=== PATIENT | male | born 1965 | race Caucasian/White ===

== ENCOUNTER 2019-06-23 03:30 | Inpatient (IN) | payer OTHER ==
[2019-06-23] MEDS ORDERED: ALBUTEROL SO4 2.5/IPRATROPIUM 0.5 INH SOL 3 ML VIAL.NEB. NEB ONE ×2 (03:39→04:41)
--- NOTE | 2019-06-23 03:44 | PDOC ---
History of Present Illness - General Stated Complaint: NAUSEA,VOMITING Time Seen by Provider: 06/23/19 03:42 History Source: Patient Exam Limitations: No Limitations - History of Present Illness Initial Comments: 06/23/19 03:43 Source: Patient, Dr. Araujo at [facility] HPI: 53yo M smoker PMH HTN, HLD, more unacknowledged and undiagnosed conditions likely presenting by way of [facility] with acute on chronic difficulty breathing. Patient endorses passing out at work today, being taken to the ED, getting a "bunch of negative testing" and then being admitted for continued coarse wheezes despite 3x nebs, albuterol, solu medrol, magnesium - patient left the hospital when he was told his could not stay in the room with him overnight. Per Dr. Araujo at [facility] - patient was picked up for ?seizure activity, found to be breathing poorly with pinpoint pupils, improved with EMS administered Narcan, negative Utox in the ED. NCHCT, CTAP, EKG, CXR all reportedly within normal limits. Reports that the patient developed diffuse coarse wheezing, was given the above mentioned medications, and was going to be admitted when he left the department. Blood work and UA unremarkable there. Also reportedly seen 06/18 for a "viral syndrome" with URI symptoms. Patient endorses having difficulty breathing, can walk up two flights of stairs , and is SOB with exertion. Endorses audible wheezes for the past month with white/yellow sputum production. No prior diagnosed CHF or COPD, also no PCP. 3 Pillow orthopnea. Unable to identify any factors that exacerbate or relieve his respiratory symptoms - no different fumes at work, denies vaping, only uses regular cigarettes. 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 Past History - Travel Traveled outside of the country in the last 30 days: No Close contact w/someone who was outside of country & ill: No - Past Medical History Allergies/Adverse Reactions: Allergies Allergy/AdvReac Type Severity Reaction Status Date / Time No Known Allergies Allergy Verified 06/23/19 04:14 Home Medications: Ambulatory Orders Cyclobenzaprine HCl [Flexeril -] 10 mg PO TID PRN #90 tablet 09/12/14 Ibuprofen [Motrin -] 800 mg PO TID PRN #30 tablet 09/12/14 - Immunization History Immunization Up to Date: Yes - Psycho Social/Smoking Cessation Hx Smoking History: Never smoked Number of Cigarettes Smoked Daily: 10 Hx Alcohol Use: Yes (social) Substance Use Type: None Review of Systems - Review of Systems Able to Perform ROS?: Yes Is the patient limited Vincentian proficient: Yes Constitutional: No: Chills, Diaphoresis, Fever, Weakness HEENTM: Yes: See HPI, Nose Congestion Respiratory: Yes: Cough, Orthopnea, Shortness of Breath, Wheezing, Productive cough (yellow and white sputum). No: Stridor, Hemoptysis Cardiac (ROS): Yes: See HPI, Syncope. No: Chest Pain, Irregular Heart Rate, Lightheadedness, Palpitations, Chest Tightness ABD/GI: Yes: Blood Streaked Bowels (several days ago, none since), Nausea, Vomiting. No: Constipated, Diarrhea, Poor Appetite, Poor Fluid Intake, Rectal Bleeding, Tarry Stools : No: Burning, Dysuria, Frequency, Pain Musculoskeletal: No: Back Pain, Muscle Pain, Muscle Weakness Integumentary: No: Bruising, Pruritus, Rash Neurological: No: Headache, Numbness, Tingling, Weakness Psychiatric: No: Stressors, Mood Swings, Change in Appetite Endocrine: No: Symptoms Reported Hematologic/Lymphatic: No: Symptoms Reported, Anemia, Blood Clots, Easy Bleeding All Other Systems: Reviewed and Negative *Physical Exam - Physical Exam Comments: 06/23/19 05:19 Vitals reviewed, notable for tachycardia and tachypnea WDWN man, audibly wheezing, on nebulizer treatment, room smells of smoke MMM, EOMI, PERRL, NCAT, trachea midline Cardiac exam difficult to hear 2/2 diffuse coarse wheezing Diffuse coarse wheezing and crackles throughout all lung daily with some reduction in breath sounds at right lung base, normal symmetric expansion, speaking full sentences with frequent audible wheezes Soft, non-tender, non-distended WWP, no clubbing / cyanosis / edema, 2+ radial pulses Alert and oriented, no acute distress, CN grossly intact, normal gait ED Treatment Course - LABORATORY CBC & Chemistry Diagram: 06/23/19 05:15 06/23/19 05:15 Medical Decision Making - Medical Decision Making 06/23/19 05:35 53yo M presenting via [facility] with diffuse wheezes, tachycardia, tachypnea, and subacute exertional SOB, orthopnea and wheezing refractory to 3x Nebs, Albuterol, Solu-medrol, Mg given prior to arrival. History notable for recent viral? URI, and month+ of progressive SOB and wheezing. Exam notable for vitals and wheezing. DDX includes but is not limited to: COPD, Bronchitis, CHF exacerbation, Viral URI. Patient without medical care / literacy - would benefit from followup and connection with care. -CBC, CMP, BNP, Cardiac profile, flu swab -EKG, CXR PA and Lat -Additional Nebs -Rocephin 1g -Azithromycin 500mg On reassessment, patient is resting comfortably, satting well off O2, still with diffuse wheezes and tachypnea. CXR on my read: good film with adequate respiratory effort, without pnuemothorax , dense consolidation or effusion, no acute bony pathology, normal mediastinum and cardiac silhouette, coarse interstitial markings, ?nodule adjacent to L hilum, some air bronchograms anteriorly 06/23/19 06:19 -WBC 18.6 c/w steroid administration at OSH -EKbpm, NSR, normal axis, normal intervals, no ischemic morphologies -Additional nebulizer treatments ordered Dispo: Admit to Med/Surg for refractory wheezing 06/23/19 06:34 -BNP 137, mild elevation, c/w normal size heart on CXR 06/23/19 06:41 -Toponin 0.19, Cr 1.7 -EKG without changes, ASA 324 ordered, troponin will need to be trended -GERRY vs CKD unclear given lack of health care use / follow up 06/23/19 06:49 -Rapid influenza negative -MBMD sent 06/23/19 06:57 Dispo: Tele for serial troponin / monitoring with Dr. Martínez Discharge - Discharge Information Problems reviewed: Yes Clinical Impression/Diagnosis: Wheezing on both sides of chest, GERRY (acute kidney injury), Troponin I above reference range Condition: Guarded - Admission Yes - Follow up/Referral Referrals: [facility] [place] [Provider Group] - Patient Discharge Instructions - Post Discharge Activity
[2019-06-23] MEDS ORDERED: AZITHROMYCIN IVPB 500 MG in DEXTROSE 5%-WATER - 250 ML IVPB ONE (04:42)
[2019-06-23] MEDS ORDERED: CEFTRIAXONE 1 GM in DEXTROSE 5%-WATER - 100 ML IVPB ONE (04:42)
[2019-06-23 05:52] LABS: BASO % 0.1 % (0-2.0); HEMATOCRIT 45.7 % (35.4-49); HEMOGLOBIN 15.5 GM/dL (11.7-16.9); LYMPH % 2.7 % (8-40); MCH 32.8 pg (25.7-33.7); MCHC 33.9 g/dl (32.0-35.9); MEAN CELL VOLUME 96.7 fl (80-96); MEAN PLT VOLUME 8.5 fl (7.5-11.1); MONO % 3.8 % (3.8-10.2); NEUT % 93.4 % (42.8-82.8); PLATELET COUNT 233 K/MM3 (134-434); RBC 4.73 M/mm3 (4.00-5.60); RDW 13.1 % (11.9-15.9); WHITE BLOOD COUNT 18.6 K/mm3 (4.0-10.0)
--- NOTE | 2019-06-23 06:04 | PDOC ---
Attending Attestation - Resident Resident Name: YashPrakash - ED Attending Attestation I have performed the following: I have examined & evaluated the patient, The case was reviewed & discussed with the resident, I agree w/resident's findings & plan, Exceptions are as noted - HPI HPI: 06/23/19 06:01 53yoM active heavy cig smoker, HTN, HL, gastritis all untreated presents after eloping from OSH ED where he was being admitted for PNA/Wheezing. Pt endorses 1 month of progressive LEVIN/orthopnea and loud, audible wheezing on exhalation. Worse x 6 days since developing URI w/ headche, fever, body aches, congestion, cough prod of greed phlegm. 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 Pt was brought to OSH w/ story of "seizure" and "pinpoint pupils by EMS, given narcan" . At OSH, had labs, CTH, CTAP, nebs, was going to receive abx but eloped. Pt states that he and his left when they were told that she could not stay with him on the inpatient floor. no f/c, no diarrhea, emesis nbnb, no chest pain, no headache - Physicial Exam PE: 06/23/19 06:04 Vital Signs - 24 hr 06/23/19 04:06 Temperature 97.6 F Pulse Rate 111 H Respiratory 22 H Rate Blood Pressure 137/90 O2 Sat by Pulse 99 Oximetry (%) NAD, audible wheezing at bedside tachy 105, no m/r/g diffuse exp wheezing throughout w/ prolong exp phase and use of abd accessory muscles O2 sat maintains 96% on RA soft, ntnd no edmea gait, balance, speech WNL A&O x 3 - Medical Decision Making 06/23/19 06:06 53yoM w/ HTN, HL, GERD, heavy cig smoking -- all unmanaged -- presenting w/ acute and subacute decompensation in setting of likely viral URI vs. CHF/volume overload. Pt w/ audible wheezing on examination and mild resp distress. - nebs - received steroids at OSH - ctx, azith - labs w/ cardaic panel - ekg - cxr - cardaic monitor - O2 PRN - admit for treatment and further w/u of chronic medical conditions, re- establish care.
[2019-06-23] MEDS ORDERED: AZITHROMYCIN IVPB 500 MG/250 ML BAG IVPB ONE (06:13)
[2019-06-23] MEDS ORDERED: CEFTRIAXONE 1 GM/50 ML BAG ONE (06:13)
[2019-06-23] MEDS: ALBUTEROL SO4 0.083% IH SOL 2.5 MG/3 ML VIAL.NEB. NEB SCH ×3 (06:23→06:50)
[2019-06-23 06:38] LABS: ALBUMIN 4.4 g/dl (3.4-5.0); BILIRUBIN,TOTAL 0.3 mg/dL (0.2-1); BLOOD UREA NITROGEN 20.8 mg/dL (7-18); CALCIUM 8.2 mg/dL (8.5-10.1); CREATININE 1.7 mg/dL (0.55-1.3); POTASSIUM 4.4 mmol/L (3.5-5.1); TOT PROT 7.7 g/dl (6.4-8.2)
[2019-06-23] MEDS ORDERED: ASPIRIN 81 MG CHEWABLE TABLETS PO ONE (06:41)
[2019-06-23] MEDS ORDERED: ASPIRIN 81 MG CHEWABLE TABLETS ONE (06:55)
[2019-06-23] MEDS ORDERED: ALBUTEROL SO4 0.083% IH SOL 2.5 MG/3 ML VIAL.NEB. NEB ONE (06:56)
[2019-06-23] MEDS ORDERED: ALBUTEROL SO4 0.083% IH SOL 2.5 MG/3 ML VIAL.NEB. NEB PRN (07:44)
[2019-06-23] MEDS ORDERED: ONDANSETRON 4 MG/2 ML VIAL IVPUSH PRN (07:48)
--- NOTE | 2019-06-23 07:48 | HP ---
CHIEF COMPLAINT:shortness of breath, wheezing, nausea PCP: none HISTORY OF PRESENT ILLNESS: Patient is a 53 y/o male with a history of HTN and HLD who presents for cough, nausea, and shortness of breath. Patients symptoms began 10 days ago. He went to [facility] last week and was told he had a viral infection. Patient reports his symptoms continued to worsen until yesterday when he began feeling nauseous and coughing up green phlem. He has been vomiting billious fluid all night. He denies any sick contacts. He had a fever last week but none recently. Patient does not follow with a PCP and does not take any medications. Recently has been trying to cut back on smoking. Denies constipation, dysuria, fever, chills, and headache. Patient reports he also has infrequent sharp chest pain but it is not associated with anything. ER course was notable for: (1)Azithro/Ceftriaxone (2)NS (3) Recent Travel: denies PAST MEDICAL HISTORY: HTN and HLD PAST SURGICAL HISTORY: denies Social History: Smokin pack a day for long time, more recently 5-7 a day Alcohol: socially Drugs: denies Allergies No Known Allergies Allergy (Verified 06/23/19 07:02) HOME MEDICATIONS: Home Medications Medication Instructions Recorded Aspirin [ASA -] 81 mg PO DAILY 06/23/19 REVIEW OF SYSTEMS CONSTITUTIONAL: Absent: fever, chills, diaphoresis, generalized weakness, malaise, loss of appetite, weight change HEENT: Absent: rhinorrhea, nasal congestion, throat pain, throat swelling, difficulty swallowing, mouth swelling, ear pain, eye pain, visual changes CARDIOVASCULAR: Absent: chest pain, syncope, palpitations, irregular heart rate, lightheadedness , peripheral edema RESPIRATORY: cough, shortness of breath, Absent: dyspnea with exertion, orthopnea, wheezing, stridor, hemoptysis GASTROINTESTINAL: Absent: abdominal pain, abdominal distension, nausea, vomiting, diarrhea, constipation, melena, hematochezia GENITOURINARY: Absent: dysuria, frequency, urgency, hesitancy, hematuria, flank pain, genital pain MUSCULOSKELETAL: Absent: myalgia, arthralgia, joint swelling, back pain, neck pain SKIN: Absent: rash, itching, pallor HEMATOLOGIC/IMMUNOLOGIC: Absent: easy bleeding, easy bruising, lymphadenopathy, frequent infections ENDOCRINE: Absent: unexplained weight gain, unexplained weight loss, heat intolerance, cold intolerance NEUROLOGIC: Absent: headache, focal weakness or paresthesias, dizziness, unsteady gait, seizure, mental status changes, bladder or bowel incontinence PSYCHIATRIC: Absent: anxiety, depression, suicidal or homicidal ideation, hallucinations. PHYSICAL EXAMINATION Vital Signs - 24 hr 06/23/19 06/23/19 06/23/19 04:06 06:26 06:57 Temperature 97.6 F 98.2 F Pulse Rate 111 H 101 H Pulse Rate [ 118 H Apical] Respiratory 22 H 20 Rate Blood Pressure 137/90 Blood Pressure 144/80 [Left Arm] O2 Sat by Pulse 99 100 97 Oximetry (%) 06/23/19 07:15 Temperature Pulse Rate Pulse Rate [ Apical] Respiratory Rate Blood Pressure Blood Pressure [Left Arm] O2 Sat by Pulse 97 Oximetry (%) GENERAL: Awake, alert, and fully oriented, in mild distress HEAD: Normal with no signs of trauma. EYES: Pupils equal, round and reactive to light, extraocular movements intact, EARS, NOSE, THROAT: Moist mucous membranes. LUNGS: diffuse inspiratory and expiratory wheezing HEART: Regular rate and rhythm, ABDOMEN: Soft, nontender, not distended, normoactive bowel sounds, no guarding, no rebound, no masses. MUSCULOSKELETAL: Normal range of motion at all joints LOWER EXTREMITIES: 2+ pulses, warm, well-perfused. No calf tenderness. No peripheral edema. NEUROLOGICAL: Cranial nerves II-XII intact. Normal speech. Normal gait. PSYCHIATRIC: Cooperative. Good eye contact. Appropriate mood and affect. SKIN: Warm, dry, normal turgor, no rashes or lesions noted, normal capillary refill. CBC, BMP 06/23/19 05:15 06/23/19 05:15 ASSESSMENT/PLAN: Patient is a 53 y/o male with a history of HTN and HLD who presents for cough, nausea, and shortness of breath. #Sepsis 2/2 to PNA - community acquired, tachycardic with leukocytosis - continue Ceftriaxone and Azithromycin - NS @ 100 - f/u lactic acid - Chest CT w/o contrast, look for infiltrate and possible new obstructive disease - continue duonebs and albuterol - QTC 446, zofran for nausea - CXR: no evidence of infiltrate #Troponimeia - likely 2/2 to sepsis, dehydration, in setting of tachycardia - continue to trend - EKG w/o ischemic changes, new RBB - continue ASA 81 mg daily #GERRY - likely prerenal in setting of sepsis - continue NS - obtain UA - if cr does not trend down consider US #DVT ppx - heparin TID #nicotine dependence - discussed benefits of quitting - patient does not want a nicotine patch #HTN - continue to monitor in setting of sepsis - consider starting medication tomorrow if symptoms improved FEN - regular diet - NS @ 100 DIspo: monitor on tele Visit type - Emergency Visit Emergency Visit: Yes ED Registration Date: 06/23/19 Care time: The patient presented to the Emergency Department on the above date and was hospitalized for further evaluation of their emergent condition. - New Patient This patient is new to me today: Yes Date on this admission: 06/24/19 - Critical Care Critical Care patient: No ATTENDING PHYSICIAN STATEMENT I saw and evaluated the patient. I reviewed the resident's note and discussed the case with the resident. I agree with the resident's findings and plan as documented. SUBJECTIVE: OBJECTIVE: ASSESSMENT AND PLAN:
[2019-06-23] MEDS: ALBUTEROL SO4 2.5/IPRATROPIUM 0.5 INH SOL 3 ML VIAL.NEB. NEB SCH ×4 (08:18→20:45)
[2019-06-23] MEDS: SODIUM CHLORIDE 1,000 ML IV SCH ×2 (08:18→21:16)
[2019-06-23 09:23] VITALS: BMI 29.9
[2019-06-23] MEDS: HEPARIN NA (PORCINE) 5,000 UNITS/ML 1ML VIAL SQ SCH ×2 (09:53→17:47)
[2019-06-23] MEDS: ASPIRIN COATED 81 MG TABLET.EC PO SCH (09:53)
[2019-06-23] MEDS: ACETAMINOPHEN 325 MG TABLET (FP) PO PRN (10:41)
--- NOTE | 2019-06-23 11:13 | PN ---
Teaching Attending Note Name of Resident: Yuli Stack ATTENDING PHYSICIAN STATEMENT I saw and evaluated the patient. I reviewed the resident's note and discussed the case with the resident. I agree with the resident's findings and plan as documented. SUBJECTIVE: CC: cough and N/V . HPI: 53 y/o man with h/o Untreated HTN, and HL,and active nicotine dependence with no medical f/u who presented with 1 week h/o cough and 1 day h/o N/V. it started as cold sx, with runny congested nose and sore throat. he went to OSH and was sent home after being diagnosed with viral illness. claritin helpd his nasal congestin but he continued to ocugh with no sputum production . he developed N/V of non bloody emesis yesterday. he has b/l lower rib case pain especially with cough. denies abd pain. denies diarrhea. has sore throat. in ER he had Cxray which did not show infiltrates ( reviewed) , he was given IVF and Abx. Now he is on floor, he feels much better in terms of his SOB . OBJECTIVE: NAD, awake, alert, cooperative . MMM, no facial droop. Erythematous oropharynx with no exudate. no LAP inneck CV : Regular rhythm, tachy about 100, no murmurs appreciated Lungs: good air entry, no wheezes, has crackles in mid L lung. Abd: obese, soft,NT, ND , NL BS Ext: No edema or erythema on upper or lower extremities Neuro: EOMI, no facial droop, uvula at midline, strength 5/5 in upper and lower extremities proximally and distally ASSESSMENT AND PLAN: 53 y/o man with h/o Untreated HTN, and HL,and active nicotine dependence with no medical f/u who presented with 1 week h/o cough and 1 day h/o N/V. 1- Sepsis, likely due to CAP given his sx despite xray being neg, but he has crackles on exam and has cough with leukocytosis - obtain CT of chest - order lactic acid - azithro and ceftriaxone - Check legionella and pneumococal Ag - IVF - send blood culture 2- elevated troponin : liekly demand ischemia in setting of sepsis. elevation in trop is minimal. EKG with sinus rhythm, tachy, no ST or TW changes, RBBB, and QTc of 446 - repeat another trop - asa for now - order echo - if trop is increasing, will get card on board with possible AC 3- GERRY VS CKD: likely GERRY in setting of sepsis and volume depletion . - IVF for now. - if cr does not improve by tomorrow , will get US 4- H/o Untreated HTN. - BP in 140s at presentation and increasing to 160s. - will start low dose labetalol 5- DVT PX: SQ heparin
[2019-06-23] MEDS ORDERED: LABETALOL HCL 100 MG TABLET (FP) PO ONE (11:20)
[2019-06-23 11:56] LABS: ANISOCYTOSIS 1+; MACROCYTOSIS 0; PLATELET ESTIMATE NORMAL; TEAR DROP CELLS 1+; TOXIC GRANULATION 1+
[2019-06-23] MEDS: PANTOPRAZOLE 20 MG TABLET (FP) PO SCH (14:53)
[2019-06-23] MEDS ORDERED: FAMOTIDINE 20 MG TABLET PO ONE (17:56)
[2019-06-23] MEDS: LABETALOL HCL 100 MG TABLET (FP) PO SCH (21:15)
[2019-06-24] MEDS: HEPARIN NA (PORCINE) 5,000 UNITS/ML 1ML VIAL SQ SCH ×3 (05:35→19:02)
[2019-06-24 06:42] LABS: HEMATOCRIT 39.9 % (35.4-49); HEMOGLOBIN 14.2 GM/dL (11.7-16.9); MCH 34.1 pg (25.7-33.7); MCHC 35.5 g/dl (32.0-35.9); MEAN CELL VOLUME 96.1 fl (80-96); MEAN PLT VOLUME 8.4 fl (7.5-11.1); PLATELET COUNT 230 K/MM3 (134-434); RBC 4.16 M/mm3 (4.00-5.60); RDW 13.3 % (11.9-15.9); WHITE BLOOD COUNT 19.8 K/mm3 (4.0-10.0)
[2019-06-24] MEDS: ALBUTEROL SO4 2.5/IPRATROPIUM 0.5 INH SOL 3 ML VIAL.NEB. NEB SCH ×2 (07:05→11:39)
[2019-06-24 07:43] LABS: BILIRUBIN,TOTAL 0.9 mg/dL (0.2-1); BLOOD UREA NITROGEN 26.5 mg/dL (7-18); CALCIUM 8.4 mg/dL (8.5-10.1); CREATININE 1.4 mg/dL (0.55-1.3); MAGNESIUM 2.6 mg/dL (1.8-2.4); PHOSPHOROUS 2.8 mg/dL (2.5-4.9); POTASSIUM 4.2 mmol/L (3.5-5.1); TOT PROT 7.2 g/dl (6.4-8.2)
[2019-06-24] MEDS: ACETAMINOPHEN 325 MG TABLET (FP) PO PRN (08:06)
[2019-06-24] MEDS ORDERED: PT OWN MED DRAWER 7, Y5N ONE ×2 (08:41→19:03)
[2019-06-24] MEDS ORDERED: CEFTRIAXONE 1 GM in DEXTROSE 5%-WATER - 50 ML IVPB ONE ×2 (10:00→10:12)
[2019-06-24] MEDS: ASPIRIN COATED 81 MG TABLET.EC PO SCH (10:06)
[2019-06-24] MEDS: PANTOPRAZOLE 20 MG TABLET (FP) PO SCH (10:06)
[2019-06-24] MEDS: LABETALOL HCL 100 MG TABLET (FP) PO SCH ×2 (10:06→21:22)
[2019-06-24] MEDS: AZITHROMYCIN IVPB 250 MG in DEXTROSE 5%-WATER - 250 ML IVPB SCH (10:06)
[2019-06-24] MEDS: SODIUM CHLORIDE 1,000 ML IV SCH (10:08)
[2019-06-24] MEDS ORDERED: cefTRIAXone SODIUM 1 GM VIAL ONE (11:53)
[2019-06-24] MEDS ORDERED: DEXTROSE 5%-WATER - 50 ML IVPB ONE (11:53)
[2019-06-24] MEDS ORDERED: predniSONE 20 MG TABLET (UD) PO ONE (13:36)
[2019-06-24] MEDS: ACETAMINOPHEN 500 MG TABLET (FP) PO PRN (14:01)
[2019-06-24] MEDS: ACETYLCYSTEINE 20% 200MG/ML 4 ML VIAL *FOR ORAL / INH USE ONLY NEB SCH ×2 (14:07→20:40)
[2019-06-24] MEDS: ALBUTEROL SO4 0.083% IH SOL 2.5 MG/3 ML VIAL.NEB. NEB PRN ×2 (14:07→20:40)
--- NOTE | 2019-06-24 14:07 | PN ---
Progress Note (short form) - Note Progress Note: Subjective: No fever or chills. No SOLANO , still feels SOB. has secretions. over all he feels much better compared to when he initially presented . slight hemoptysis Objective: Vital Signs: Last Vital Signs Temp Pulse Resp BP Pulse Ox 97.9 F 110 H 23 H 142/95 98 06/24/19 13:49 06/24/19 13:49 06/24/19 13:49 06/24/19 13:49 06/24/19 09:00 Laboratory Results - last 24 hr 06/23/19 06/23/19 06/23/19 15:32 15:32 19:03 WBC RBC Hgb Hct MCV MCH MCHC RDW Plt Count MPV Sodium Potassium Chloride Carbon Dioxide Anion Gap BUN Creatinine Est GFR (CKD-EPI)AfAm Est GFR (CKD-EPI)NonAf Random Glucose Lactic Acid 3.1 H* 2.2 H* Calcium Phosphorus Magnesium Total Bilirubin AST ALT Alkaline Phosphatase Troponin I 0.15 H Total Protein Albumin 06/24/19 06/24/19 06/24/19 05:45 06:13 06:13 WBC 19.8 H RBC 4.16 Hgb 14.2 Hct 39.9 MCV 96.1 H MCH 34.1 H MCHC 35.5 RDW 13.3 Plt Count 230 MPV 8.4 Sodium 137 Potassium 4.2 Chloride 109 H Carbon Dioxide 20 L Anion Gap 8 BUN 26.5 H Creatinine 1.4 H Est GFR (CKD-EPI)AfAm 65.09 Est GFR (CKD-EPI)NonAf 56.16 Random Glucose 109 H Lactic Acid 1.4 Calcium 8.4 L Phosphorus 2.8 Magnesium 2.6 H Total Bilirubin 0.9 AST 80 H ALT 53 Alkaline Phosphatase 74 Troponin I Total Protein 7.2 Albumin 4.0 Physical Exam: NAD, awake, alert, cooperative . MMM CV : Regular rhythm, tachy Lungs: good air entry, +wheezes, has crackles in mid L lung. Ext: No edema or erythema on upper or lower extremities ASSESSMENT AND PLAN: 53 y/o man with h/o Untreated HTN, and HL,and active nicotine dependence with no medical f/u who presented with 1 week h/o cough and 1 day h/o N/V. 1- Sepsis, due to b/l CAP . slightly improved. has wheezing today. Nebs help . leukocytosis improved - cotn ceftriaxone and azithro day 2 - legionella /pneumococcal Ag neg -blood cx neg to date - IVF - add steroids. - cont nebs - add mucomyst Nebs - reepeat CT of chest in 6-8 weeks . he was made aware 2- elevated troponin : likely demand ischemia in setting of sepsis. elevation in trop is minimal and trended down . - asa for now - echo pendign 3- GERRY VS CKD: likely GERRY in setting of sepsis and volume depletion. Cr improved - IVF for now. 4- H/o Untreated HTN. - cont labetalol 5- DVT PX: SQ heparin Visit type - Emergency Visit Emergency Visit: Yes ED Registration Date: 06/23/19 Care time: The patient presented to the Emergency Department on the above date and was hospitalized for further evaluation of their emergent condition. - New Patient This patient is new to me today: No - Critical Care Critical Care patient: No
[2019-06-24 14:29] LABS: EPI CELLS 0.2 /HPF (0-5/HPF); HYALINE CASTS 0 /lpf (0-8); PH,URINE 5.5 (5.0-8.0); URINE APPEARANCE CLEAR; URINE BACTERIA 1.9 /hpf (NEGATIVE); URINE BILIRUBIN NEGATIVE (NEGATIVE); URINE COLOR YELLOW; URINE GLUCOSE (UA) NEGATIVE (NEGATIVE); URINE KETONE NEGATIVE (NEGATIVE); URINE LEUK ESTERASE NEGATIVE (NEGATIVE); URINE NITRITE NEGATIVE (NEGATIVE); URINE PROTEIN NEGATIVE (NEGATIVE); URINE RBC 4 /hpf (0-4); URINE UROBILINOGEN 0.2 mg/dL (0.2-1.0); URINE WBC 0 /hpf (0-5)
[2019-06-24 15:09] LABS: MAGNESIUM 2.4 mg/dL (1.8-2.4); PHOSPHOROUS 2.3 mg/dL (2.5-4.9)
[2019-06-25] MEDS: ACETAMINOPHEN 500 MG TABLET (FP) PO PRN ×3 (00:56→18:33)
[2019-06-25] MEDS: HEPARIN NA (PORCINE) 5,000 UNITS/ML 1ML VIAL SQ SCH ×3 (05:11→17:44)
[2019-06-25 06:47] LABS: BASO % 0.4 % (0-2.0); EOS % 0.1 % (0-4.5); HEMATOCRIT 40.8 % (35.4-49); LYMPH % 11.8 % (8-40); MCHC 34.4 g/dl (32.0-35.9); MEAN CELL VOLUME 95.9 fl (80-96); MEAN PLT VOLUME 8.5 fl (7.5-11.1); MONO % 5.6 % (3.8-10.2); NEUT % 82.1 % (42.8-82.8); PLATELET COUNT 228 K/MM3 (134-434); RBC 4.25 M/mm3 (4.00-5.60); WHITE BLOOD COUNT 14.1 K/mm3 (4.0-10.0)
[2019-06-25 07:13] LABS: BLOOD UREA NITROGEN 20.2 mg/dL (7-18); CALCIUM 8.5 mg/dL (8.5-10.1); CREATININE 1.2 mg/dL (0.55-1.3); POTASSIUM 4.5 mmol/L (3.5-5.1)
[2019-06-25] MEDS: ACETYLCYSTEINE 20% 200MG/ML 4 ML VIAL *FOR ORAL / INH USE ONLY NEB SCH ×2 (08:38→21:15)
[2019-06-25] MEDS: ALBUTEROL SO4 0.083% IH SOL 2.5 MG/3 ML VIAL.NEB. NEB PRN ×3 (08:40→21:15)
[2019-06-25] MEDS ORDERED: DEXTROSE 5%-WATER - 50 ML IVPB ONE (09:09)
[2019-06-25] MEDS ORDERED: cefTRIAXone SODIUM 1 GM VIAL ONE (09:09)
[2019-06-25] MEDS: ASPIRIN COATED 81 MG TABLET.EC PO SCH (10:04)
[2019-06-25] MEDS: PANTOPRAZOLE 20 MG TABLET (FP) PO SCH (10:05)
[2019-06-25] MEDS: predniSONE 20 MG TABLET (UD) PO SCH (10:05)
[2019-06-25] MEDS: LABETALOL HCL 100 MG TABLET (FP) PO SCH ×2 (10:05→22:56)
[2019-06-25] MEDS: CEFTRIAXONE 1 GM in DEXTROSE 5%-WATER - 50 ML IVPB SCH (10:07)
[2019-06-25] MEDS: AZITHROMYCIN IVPB 250 MG in DEXTROSE 5%-WATER - 250 ML IVPB SCH (10:08)
--- NOTE | 2019-06-25 10:55 | EKG ---
Test Reason : Blood Pressure : / mmHG Vent. Rate : 100 BPM Atrial Rate : 100 BPM P-R Int : 146 ms QRS Dur : 090 ms QT Int : 346 ms P-R-T Axes : 053 040 047 degrees QTc Int : 446 ms NORMAL SINUS RHYTHM INCOMPLETE RIGHT BUNDLE BRANCH BLOCK NO PREVIOUS ECGS AVAILABLE Confirmed by OSCAR AYERS MD ([id number]) on 06/25/2019 10:55:08 AM Referred By: Confirmed By:OSCAR AYERS MD
--- NOTE | 2019-06-25 11:27 | ECHO ---
Name: JOSSIE WASHINGTON Exam:Adult Echocardiogram Study Date: 06/25/2019 09:28 AM Age: 53 yrs Height: 64 in Weight: 174 lb BSA: 1.8 m2 MMode/2D Measurements & Calculations IVSd: 0.71 cm ACS: 2.0 cm LVIDd: 3.6 cm LVIDs: 2.3 cm LVPWd: 1.2 cm EDV(Teich): 55.3 ml LVOT diam: 1.9 cm ESV(Teich): 19.1 ml RV S Sagar: 16.8 cm/sec Doppler Measurements & Calculations MV E max sagar: 67.9 cm/sec MV A max sagar: 75.9 cm/sec MV dec slope: 547.3 cm/sec2 MV E/A: 0.89 Ao V2 max: 153.4 cm/sec LV V1 max P.8 mmHg Ao max P.4 mmHg LV V1 mean P.2 mmHg Ao V2 mean: 114.8 cm/sec LV V1 max: 97.9 cm/sec Ao mean P.9 mmHg LV V1 mean: 69.6 cm/sec Ao V2 VTI: 26.3 cm LV V1 VTI: 16.2 cm JUDY(I,D): 1.7 cm2 JUDY(V,D): 1.8 cm2 SV(LVOT): 44.8 ml Med Peak E' Sagar: 8.7 cm/sec Med E/e': 7.8 Lat Peak E' Sagar: 8.5 cm/sec Lat E/e': 8.0 Procedure A complete two-dimensional transthoracic echocardiogram was performed (2D, M-mode, Doppler and color flow Doppler). Technically limited study. Left Ventricle The left ventricle is normal in size. Left ventricular systolic function is normal. Ejection Fraction = 60- 65%. No regional wall motion abnormalities noted. Right Ventricle The right ventricle is normal size. The right ventricular systolic function is normal. RV systolic TD I is 17 cm/s. Atria The left atrial size is normal. Right atrial size is normal. Mitral Valve The mitral valve is normal in structure and function. There is trace mitral regurgitation. Tricuspid Valve The tricuspid valve is normal in structure and function. No tricuspid regurgitation. Aortic Valve The aortic valve is normal in structure and function. No aortic regurgitation is present. Pulmonic Valve The pulmonic valve is not well visualized. Trace pulmonic valvular regurgitation. Great Vessels The aortic root is normal size. Pericardium/Pleura There is no pericardial effusion. Interpretation Summary Technically limited study The left ventricle is normal in size. Left ventricular systolic function is normal. No regional wall motion abnormalities noted. Ejection Fraction = 60-65%. The right ventricular systolic function is normal. The left atrial size is normal. Right atrial size is normal. There is trace mitral regurgitation. Trace pulmonic valvular regurgitation. There is no pericardial effusion. Previous study is not available for comparison Manuel Grayson MD 06/25/2019 11:26 AM
[2019-06-25] MEDS ORDERED: NAPH,MB-DB/K PH,MBDB POWDER PACKET PO ONE (11:39)
--- NOTE | 2019-06-25 11:45 | PN ---
Teaching Attending Note Name of Resident: Yuli Stack ATTENDING PHYSICIAN STATEMENT I saw and evaluated the patient. I reviewed the resident's note and discussed the case with the resident. I agree with the resident's findings and plan as documented. SUBJECTIVE: He feels much better today. has mild SOLANO. SOB has much improved. has episodes of hemoptysis and epistaxis yesterday. No CP. No abd pain, no diarrhea OBJECTIVE: NAD, awake, alert, cooperative . MMM CV : RRR Lungs: good air entry,minimal wheezes, has crackles in mid L lung. Ext: No edema or erythema on upper or lower extremities ASSESSMENT AND PLAN: 53 y/o man with h/o Untreated HTN, and HL,and active nicotine dependence with no medical f/u who presented with 1 week h/o cough and 1 day h/o N/V. 1- Sepsis, due to b/l CAP . symptomatically much improved and leukocytosis has improved. No fever . hemoptysis is likely due to the PNA. minimal - cont ceftriaxone and azithro day 3 - blood cx neg to date. sputum cx neg - IVF . can dc tomorrow - cotn steroids. Day 2 of 40 mg - cont nebs - cont mucomyst Nebs - repeat CT of chest in 6-8 weeks . he was made aware 2- Elevated troponin: likely demand ischemia in setting of sepsis. elevation in trop is minimal and trended down . - asa for now - echo pending 3- GERRY VS CKD: likely GERRY in setting of sepsis and volume depletion. Cr normalized - IVF for now. 4- H/o Untreated HTN. - cont labetalol 5- DVT PX: SQ heparin ( patient refusing ) tele reviewed. No events. Dc tele and transfer to Med Surg
--- NOTE | 2019-06-25 12:13 | PN ---
Physical Exam: SUBJECTIVE: Patient seen and examined in the morning. No acute events overnight. Patient had no complaints of chest pain, shortness of breath, abdominal pain, bleeding, headache, dysuria, or hematuria overnight. OBJECTIVE: Vital Signs Period Temp Pulse Resp BP Sys/Mayes Pulse Ox Last 24 Hr 97.9 F-98.7 F 88-110 20-23 139-165/85-100 95-98 GENERAL: The patient is awake, alert, and fully oriented, in no acute distress. HEAD: Normal with no signs of trauma. NECK: Trachea midline, full range of motion, supple. LUNGS: Breath sounds equal, clear to auscultation bilaterally, no wheezes, no crackles, no accessory muscle use. HEART: Regular rate and rhythm, S1, S2 without murmur, rub or gallop. ABDOMEN: Soft, nontender, nondistended, normoactive bowel sounds, no guarding EXTREMITIES: 2+ pulses, warm, well-perfused, no edema. NEUROLOGICAL: Cranial nerves II through XII grossly intact. Normal speech. SKIN: Warm, dry, normal turgor, no rashes or lesions noted Laboratory Results - last 24 hr 06/24/19 06/24/19 06/25/19 13:55 14:31 05:32 WBC 14.1 H RBC 4.25 Hgb 14.0 Hct 40.8 MCV 95.9 MCH 33.0 MCHC 34.4 RDW 13.0 Plt Count 228 MPV 8.5 Absolute Neuts (auto) 11.6 H Neutrophils % 82.1 Lymphocytes % 11.8 D Monocytes % 5.6 Eosinophils % 0.1 D Basophils % 0.4 D Nucleated RBC % 0 Sodium Potassium Chloride Carbon Dioxide Anion Gap BUN Creatinine Est GFR (CKD-EPI)AfAm Est GFR (CKD-EPI)NonAf Random Glucose Calcium Phosphorus 2.3 L Magnesium 2.4 Urine Color Yellow Urine Appearance Clear Urine pH 5.5 Ur Specific Marcy 1.013 Urine Protein Negative Urine Glucose (UA) Negative Urine Ketones Negative Urine Blood 2+ H Urine Nitrite Negative Urine Bilirubin Negative Urine Urobilinogen 0.2 Ur Leukocyte Esterase Negative Urine WBC (Auto) 0 Urine RBC (Auto) 4 Urine Casts (Auto) 0 U Epithel Cells (Auto) 0.2 Urine Bacteria (Auto) 1.9 06/25/19 05:32 WBC RBC Hgb Hct MCV MCH MCHC RDW Plt Count MPV Absolute Neuts (auto) Neutrophils % Lymphocytes % Monocytes % Eosinophils % Basophils % Nucleated RBC % Sodium 138 Potassium 4.5 Chloride 106 Carbon Dioxide 25 Anion Gap 6 L BUN 20.2 H Creatinine 1.2 Est GFR (CKD-EPI)AfAm 78.43 Est GFR (CKD-EPI)NonAf 67.67 Random Glucose 97 Calcium 8.5 Phosphorus Magnesium Urine Color Urine Appearance Urine pH Ur Specific Marcy Urine Protein Urine Glucose (UA) Urine Ketones Urine Blood Urine Nitrite Urine Bilirubin Urine Urobilinogen Ur Leukocyte Esterase Urine WBC (Auto) Urine RBC (Auto) Urine Casts (Auto) U Epithel Cells (Auto) Urine Bacteria (Auto) Active Medications Generic Name Dose Route Start Last Admin Trade Name Freq PRN Reason Stop Dose Admin Acetaminophen 1,000 mg 06/24/19 13:37 06/25/19 10:12 Tylenol - PO 1,000 mg Q6H PRN Administration PAIN LEVEL 6-10 Acetylcysteine 600 mg 06/24/19 13:45 06/25/19 08:38 Mucomyst 20 Oral / Inh Use Only* NEB 600 mg RBID IRAIS Administration Albuterol Sulfate 1 amp 06/24/19 13:37 06/25/19 11:39 Ventolin 0.083% Nebulizer Soln - NEB 1 amp Q6H PRN Administration WHEEZING Aspirin 81 mg 06/23/19 10:00 06/25/19 10:04 Ecotrin - PO 81 mg DAILY IRAIS Administration Heparin Sodium (Porcine) 5,000 unit 06/23/19 10:00 06/25/19 10:34 Heparin - SQ Not Given Q8H-IV IRAIS Azithromycin 250 mg/ Dextrose 250 mls @ 250 mls/hr 06/24/19 10:00 06/25/19 10 :08 IVPB 250 mls/hr DAILY IRAIS Administration Sodium Chloride 1,000 mls @ 100 mls/hr 06/24/19 07:00 06/24/19 10:08 Normal Saline - IV 100 mls/hr ASDIR IRAIS Administration Ceftriaxone Sodium 1 gm/ 50 mls @ 100 mls/hr 06/25/19 10:00 06/25/19 10:07 Dextrose IVPB 100 mls/hr DAILY IRAIS Administration Labetalol HCl 100 mg 06/23/19 22:00 06/25/19 10:05 Normodyne - PO 100 mg BID IRAIS Administration Pantoprazole Sodium 20 mg 06/23/19 14:30 06/25/19 10:05 Protonix - PO 20 mg DAILY IRAIS Administration Prednisone 40 mg 06/25/19 10:00 06/25/19 10:05 Deltasone - PO 40 mg DAILY IRAIS Administration ASSESSMENT/PLAN: 53M with HTN, HLD, who presented with cough, nausea, and shortness of breath secondary to pneumonia. 1)Sepsis secondary to pneumonia -Was tachycardic and had leukocytosis of 18.3 on admission. -Chest CT showed right middle lobe pneumonia. Repeat in 6-8 weeks. -WBC is 14.1 today. -Continue Ceftriaxone 1 gram IV daily -Continue azithromycin 250 mg IV daily -Continue Albuterol PRN -Continue Prednisone 40 mg PO daily -Continue Acetylcysteine BID 2)New episodes of epistaxis and hemoptysis -Likely secondary to pneumonia -TB unlikely -D/C heparin -Coagulopathy studies as outpatient 3)Elevated Troponin: -Likely secondary to ischemia in setting of sepsis -Continue ASA 81 mg PO daily 4)GERRY -Creatinine is 1.2 today. Improving. -Continue NS @100 ml/hr 5)HTN -Continue labetolol 100 mg PO BID F: Continue NS @ 100 ml/hr E: Monitor Electrolytes N: Sodium restricted diet DVT Prophylaxis: SCD Dispo: Transferred to medicine floors Visit type - Emergency Visit Emergency Visit: Yes ED Registration Date: 06/23/19 Care time: The patient presented to the Emergency Department on the above date and was hospitalized for further evaluation of their emergent condition. - New Patient This patient is new to me today: No - Critical Care Critical Care patient: No ATTENDING PHYSICIAN STATEMENT I saw and evaluated the patient. I reviewed the resident's note and discussed the case with the resident. I agree with the resident's findings and plan as documented. SUBJECTIVE: OBJECTIVE: ASSESSMENT AND PLAN:
[2019-06-25] MEDS: SODIUM CHLORIDE 1,000 ML IV SCH (13:31)
[2019-06-26] MEDS: ALBUTEROL SO4 0.083% IH SOL 2.5 MG/3 ML VIAL.NEB. NEB PRN ×5 (01:15→19:37)
[2019-06-26] MEDS: HEPARIN NA (PORCINE) 5,000 UNITS/ML 1ML VIAL SQ SCH ×4 (01:30→21:09)
[2019-06-26] MEDS: SODIUM CHLORIDE 1,000 ML IV SCH ×2 (04:44→14:36)
[2019-06-26] MEDS: ACETAMINOPHEN 500 MG TABLET (FP) PO PRN (06:13)
[2019-06-26 08:18] LABS: BASO % 0.4 % (0-2.0); EOS % 0.5 % (0-4.5); HEMATOCRIT 43.3 % (35.4-49); HEMOGLOBIN 14.7 GM/dL (11.7-16.9); LYMPH % 17.8 % (8-40); MCH 32.3 pg (25.7-33.7); MCHC 33.9 g/dl (32.0-35.9); MEAN CELL VOLUME 95.3 fl (80-96); MEAN PLT VOLUME 8.2 fl (7.5-11.1); MONO % 6.8 % (3.8-10.2); NEUT % 74.5 % (42.8-82.8); PLATELET COUNT 241 K/MM3 (134-434); RBC 4.54 M/mm3 (4.00-5.60); RDW 13.2 % (11.9-15.9); WHITE BLOOD COUNT 13.3 K/mm3 (4.0-10.0)
[2019-06-26] MEDS ORDERED: DEXTROSE 5%-WATER - 50 ML IVPB ONE (08:31)
[2019-06-26] MEDS ORDERED: cefTRIAXone SODIUM 1 GM VIAL ONE (08:31)
[2019-06-26 08:39] LABS: BLOOD UREA NITROGEN 16.9 mg/dL (7-18); CALCIUM 8.4 mg/dL (8.5-10.1); CREATININE 1.2 mg/dL (0.55-1.3); POTASSIUM 3.8 mmol/L (3.5-5.1)
[2019-06-26] MEDS: ACETYLCYSTEINE 20% 200MG/ML 4 ML VIAL *FOR ORAL / INH USE ONLY NEB SCH ×2 (09:02→09:05)
[2019-06-26] MEDS: ASPIRIN COATED 81 MG TABLET.EC PO SCH (09:58)
[2019-06-26] MEDS: CEFTRIAXONE 1 GM in DEXTROSE 5%-WATER - 50 ML IVPB SCH (09:58)
[2019-06-26] MEDS: PANTOPRAZOLE 20 MG TABLET (FP) PO SCH (09:58)
[2019-06-26] MEDS: predniSONE 20 MG TABLET (UD) PO SCH (09:58)
[2019-06-26] MEDS: LABETALOL HCL 100 MG TABLET (FP) PO SCH (09:58)
[2019-06-26] MEDS ORDERED: SODIUM CHLORIDE 1,000 ML IV SCH (12:39)
[2019-06-26] MEDS ORDERED: ACETAMINOPHEN 500 MG TABLET (FP) PO PRN (12:39)
[2019-06-26] MEDS: AZITHROMYCIN IVPB 250 MG in DEXTROSE 5%-WATER - 250 ML IVPB SCH (14:36)
--- NOTE | 2019-06-26 14:54 | PN ---
Physical Exam: SUBJECTIVE: Patient seen and examined in the morning. No acute events overnight. No complaints of shortness of breath, nausea, vomiting, abdominal pain, chest pain, fevers, or chills. OBJECTIVE: Vital Signs Period Temp Pulse Resp BP Sys/Mayes Pulse Ox Last 24 Hr 97.7 F-98.9 F 95-106 20-22 139-159/87-107 95-97 GENERAL: The patient is awake, alert, and fully oriented, in no acute distress. HEAD: Normal with no signs of trauma. NECK: Trachea midline, full range of motion, supple. LUNGS: Left lung is clear to auscultation bilaterally. Right lung has expiratory wheezing on in the upper and middle lobes. HEART: Regular rate and rhythm, S1, S2 without murmur, rub or gallop. ABDOMEN: Soft, nontender, nondistended, normoactive bowel sounds, no guarding EXTREMITIES: 2+ pulses, warm, well-perfused, no edema. NEUROLOGICAL: Cranial nerves II through XII grossly intact. Normal speech. SKIN: Warm, dry, normal turgor, no rashes or lesions noted Laboratory Results - last 24 hr 06/26/19 06/26/19 07:58 07:58 WBC 13.3 H RBC 4.54 Hgb 14.7 Hct 43.3 MCV 95.3 MCH 32.3 MCHC 33.9 RDW 13.2 Plt Count 241 MPV 8.2 Absolute Neuts (auto) 9.9 H Neutrophils % 74.5 Lymphocytes % 17.8 D Monocytes % 6.8 Eosinophils % 0.5 D Basophils % 0.4 Nucleated RBC % 0 Sodium 139 Potassium 3.8 Chloride 107 Carbon Dioxide 25 Anion Gap 6 L BUN 16.9 Creatinine 1.2 Est GFR (CKD-EPI)AfAm 78.43 Est GFR (CKD-EPI)NonAf 67.67 Random Glucose 109 H Calcium 8.4 L Active Medications Generic Name Dose Route Start Last Admin Trade Name Freq PRN Reason Stop Dose Admin Acetaminophen 1,000 mg 06/26/19 12:39 Tylenol - PO Q6H PRN PAIN LEVEL 6-10 Acetylcysteine 600 mg 06/26/19 20:00 Mucomyst 20 Oral / Inh Use Only* NEB RBID IRAIS Albuterol Sulfate 1 amp 06/26/19 12:39 Ventolin 0.083% Nebulizer Soln - NEB Q6H PRN WHEEZING Aspirin 81 mg 06/27/19 10:00 Ecotrin - PO DAILY IRAIS Heparin Sodium (Porcine) 5,000 unit 06/26/19 14:00 06/26/19 14:47 Heparin - SQ Not Given TID IRAIS Azithromycin 250 mg/ Dextrose 250 mls @ 250 mls/hr 06/27/19 10:00 IVPB DAILY IRAIS Ceftriaxone Sodium 1 gm/ 50 mls @ 100 mls/hr 06/27/19 10:00 Dextrose IVPB DAILY IRAIS Sodium Chloride 1,000 mls @ 100 mls/hr 06/26/19 12:39 06/26/19 14:47 Normal Saline - IV 100 mls/hr ASDIR IRAIS Administration Labetalol HCl 100 mg 06/26/19 22:00 Normodyne - PO BID IRAIS Pantoprazole Sodium 20 mg 06/27/19 10:00 Protonix - PO DAILY IRAIS Prednisone 40 mg 06/27/19 10:00 Deltasone - PO DAILY IRAIS ASSESSMENT/PLAN: 53M with HTN, HLD, who presented with cough, nausea, and shortness of breath secondary to pneumonia. 1)Sepsis secondary to pneumonia -Was tachycardic and had leukocytosis of 18.3 on admission. -Chest CT showed bilateral lobe pneumonia. Repeat in 6-8 weeks. -WBC is 13.3 today. -Continue Ceftriaxone 1 gram IV daily -Continue azithromycin 250 mg IV daily -Continue Albuterol PRN -Continue Prednisone 40 mg PO daily -Continue Acetylcysteine BID 2)New episodes of epistaxis and hemoptysis -Likely secondary to pneumonia -TB unlikely -D/C heparin -Coagulopathy studies as outpatient 3)Elevated Troponin: -Likely secondary to ischemia in setting of sepsis -Continue ASA 81 mg PO daily 4)GERRY -Creatinine is 1.2 today. Improving. -Continue NS @100 ml/hr 5)HTN -Continue labetolol 100 mg PO BID F: Continue NS @ 100 ml/hr E: Monitor Electrolytes N: Sodium restricted diet DVT Prophylaxis: Heparin 5000 unit SQ TID Dispo: Admitted to medicine floors Visit type - Emergency Visit Emergency Visit: Yes ED Registration Date: 06/23/19 Care time: The patient presented to the Emergency Department on the above date and was hospitalized for further evaluation of their emergent condition. - New Patient This patient is new to me today: No - Critical Care Critical Care patient: No ATTENDING PHYSICIAN STATEMENT I saw and evaluated the patient. I reviewed the resident's note and discussed the case with the resident. I agree with the resident's findings and plan as documented. SUBJECTIVE: OBJECTIVE: ASSESSMENT AND PLAN:
--- NOTE | 2019-06-26 18:17 | PN ---
Teaching Attending Note Name of Resident: Luca Santos ATTENDING PHYSICIAN STATEMENT I saw and evaluated the patient. I reviewed the resident's note and discussed the case with the resident. I agree with the resident's findings and plan as documented. SUBJECTIVE: No fever or chills. No SOLANO . SOB is better compared to yesterday . does not want the mucomyst . No hemoptysis or nose bleed today OBJECTIVE: NAD, awake, alert, MMM CV: RRR Lungs: good air entry,minimal wheezes,No crackles heard Ext: No edema or erythema on upper or lower extremities ASSESSMENT AND PLAN: 53 y/o man with h/o Untreated HTN, and HL,and active nicotine dependence with no medical f/u who presented with 1 week h/o cough and 1 day h/o N/V. 1- Sepsis, due to b/l CAP . much improved , still has leukocytosis , but sx are better and no more fever - cont ceftriaxone and azithro day 4 - blood cx neg x 72 hr . sputum cx neg - DC IVF - dc mucomyst as patient refuses - cont steroids. Day 3 of 40 mg, probably can start tapering after tomorrow's dose - cont nebs - cxray and CBC in am 2- Elevated Troponin: likely demand ischemia in setting of sepsis. elevation in trop is minimal and trended down . - ASA for now - echo reviewed. - f/u with card as out pt for stress test 3- GERRY : resolved. dc IVF 4- H/o Untreated HTN. - change labetalol to norvasc in setting of broncospasm and possible undiagnosed COPD. 5- DVT PX: SQ heparin ( patient refusing ) possible dc tomorrow
[2019-06-26] MEDS ORDERED: ACETYLCYSTEINE 20% 200MG/ML 4 ML VIAL *FOR ORAL / INH USE ONLY NEB SCH (20:00)
[2019-06-26] MEDS ORDERED: LABETALOL HCL 100 MG TABLET (FP) PO SCH (22:00)
[2019-06-27] MEDS: HEPARIN NA (PORCINE) 5,000 UNITS/ML 1ML VIAL SQ SCH ×2 (05:41→15:20)
[2019-06-27 08:12] LABS: BASO % 0.4 % (0-2.0); HEMATOCRIT 43.8 % (35.4-49); HEMOGLOBIN 14.9 GM/dL (11.7-16.9); LYMPH % 23.7 % (8-40); MCH 32.9 pg (25.7-33.7); MCHC 34.1 g/dl (32.0-35.9); MEAN CELL VOLUME 96.5 fl (80-96); MEAN PLT VOLUME 8.1 fl (7.5-11.1); MONO % 7.3 % (3.8-10.2); NEUT % 67.6 % (42.8-82.8); PLATELET COUNT 277 K/MM3 (134-434); RBC 4.54 M/mm3 (4.00-5.60); RDW 13.1 % (11.9-15.9); WHITE BLOOD COUNT 12.7 K/mm3 (4.0-10.0)
[2019-06-27] MEDS: ALBUTEROL SO4 0.083% IH SOL 2.5 MG/3 ML VIAL.NEB. NEB PRN (08:28)
[2019-06-27 08:40] LABS: BLOOD UREA NITROGEN 19.8 mg/dL (7-18); CALCIUM 8.8 mg/dL (8.5-10.1); CREATININE 1.3 mg/dL (0.55-1.3); POTASSIUM 4.1 mmol/L (3.5-5.1)
[2019-06-27] MEDS ORDERED: cefTRIAXone SODIUM 1 GM VIAL ONE (08:55)
[2019-06-27] MEDS ORDERED: DEXTROSE 5%-WATER - 50 ML IVPB ONE (08:56)
[2019-06-27] MEDS ORDERED: PT OWN MED DRAWER 7, Y5N ONE (08:58)
--- NOTE | 2019-06-27 09:20 | PN ---
Teaching Attending Note Name of Resident: Luca Santos ATTENDING PHYSICIAN STATEMENT I saw and evaluated the patient. I reviewed the resident's note and discussed the case with the resident. I agree with the resident's findings and plan as documented. SUBJECTIVE: Patient is improving symptomatically , No fever or chills. No SOLANO . SOB is morning but improving as per patient since got the nebuliizer treatment. As per patient quit smoking 2 weeks ago and will not smoke ever and stated that he had a childhood asthma. Vital Signs Temperature 98.2 F 06/27/19 08:18 Pulse Rate 89 06/27/19 08:18 Respiratory Rate 22 H 06/27/19 08:18 Blood Pressure 152/95 06/27/19 08:18 O2 Sat by Pulse Oximetry (%) 95 06/26/19 21:00 GENERAL: The patient is awake, alert, and fully oriented, in no acute distress. HEAD: Normal with no signs of trauma. EYES: PERRL, extraocular movements intact, sclera anicteric, conjunctiva clear. ENT: Ears normal, oropharynx clear without exudates, moist mucous membranes. NECK: Trachea midline, full range of motion, supple. LUNGS: decreased Breath sounds BL, positive for wheezing bl, no crackles, no accessory muscle use. HEART: Regular rate and rhythm, S1, S2 without murmur, rub or gallop. ABDOMEN: Soft, nontender, nondistended, normoactive bowel sounds, no guarding, no rebound, no hepatosplenomegaly, no masses. EXTREMITIES: 2+ pulses, warm, well-perfused, no edema. NEUROLOGICAL: Cranial nerves II through XII grossly intact. Normal speech, gait not observed. PSYCH: Normal mood, normal affect. SKIN: Warm, dry, normal turgor, no rashes or lesions noted CBCD WBC 12.7 K/mm3 (4.0-10.0) H 06/27/19 07:10 RBC 4.54 M/mm3 (4.00-5.60) 06/27/19 07:10 Hgb 14.9 GM/dL (11.7-16.9) 06/27/19 07:10 Hct 43.8 % (35.4-49) 06/27/19 07:10 MCV 96.5 fl (80-96) H 06/27/19 07:10 MCHC 34.1 g/dl (32.0-35.9) 06/27/19 07:10 RDW 13.1 % (11.9-15.9) 06/27/19 07:10 Plt Count 277 K/MM3 (134-434) 06/27/19 07:10 MPV 8.1 fl (7.5-11.1) 06/27/19 07:10 CMP Sodium 138 mmol/L (136-145) 06/27/19 07:05 Potassium 4.1 mmol/L (3.5-5.1) 06/27/19 07:05 Chloride 104 mmol/L (98-107) 06/27/19 07:05 Carbon Dioxide 26 mmol/L (21-32) 06/27/19 07:05 Anion Gap 8 MMOL/L (8-16) 06/27/19 07:05 BUN 19.8 mg/dL (7-18) H 06/27/19 07:05 Creatinine 1.3 mg/dL (0.55-1.3) 06/27/19 07:05 Random Glucose 85 mg/dL (74-106) 06/27/19 07:05 Calcium 8.8 mg/dL (8.5-10.1) 06/27/19 07:05 Total Bilirubin 0.9 mg/dL (0.2-1) 06/24/19 06:13 AST 80 U/L (15-37) H 06/24/19 06:13 ALT 53 U/L (13-61) 06/24/19 06:13 Alkaline Phosphatase 74 U/L (45-117) 06/24/19 06:13 Total Protein 7.2 g/dl (6.4-8.2) 06/24/19 06:13 Albumin 4.0 g/dl (3.4-5.0) 06/24/19 06:13 CARDIAC ENZYMES Creatine Kinase 959 U/L (26-308) H 06/23/19 05:15 Troponin I 0.15 ng/ml (0.00-0.05) H 06/23/19 15:32 Current Medications Generic Name Dose Route Start Last Admin Trade Name Freq PRN Reason Stop Dose Admin Acetaminophen 1,000 mg 06/26/19 12:39 Tylenol - PO Q6H PRN PAIN LEVEL 6-10 Albuterol Sulfate 1 amp 06/26/19 12:39 06/27/19 08:28 Ventolin 0.083% Nebulizer Soln - NEB 1 amp Q6H PRN Administration WHEEZING Amlodipine Besylate 5 mg 06/27/19 10:00 06/27/19 09:07 Norvasc - PO 5 mg DAILY IRAIS Administration Aspirin 81 mg 06/27/19 10:00 06/27/19 09:08 Ecotrin - PO 81 mg DAILY IRAIS Administration Heparin Sodium (Porcine) 5,000 unit 06/26/19 14:00 06/27/19 05:41 Heparin - SQ Not Given TID IRAIS Azithromycin 250 mg/ Dextrose 250 mls @ 250 mls/hr 06/27/19 10:00 IVPB DAILY IRAIS Ceftriaxone Sodium 1 gm/ 50 mls @ 100 mls/hr 06/27/19 10:00 06/27/19 09:07 Dextrose IVPB 100 mls/hr DAILY IRASI Administration Pantoprazole Sodium 20 mg 06/27/19 10:00 06/27/19 09:08 Protonix - PO 20 mg DAILY IRAIS Administration Prednisone 40 mg 06/27/19 10:00 06/27/19 09:08 Deltasone - PO 40 mg DAILY IRAIS Administration Home Medications Medication Instructions Recorded Aspirin [ASA -] 81 mg PO DAILY 06/23/19 Microbiology 06/23/19 11:40 Blood - Peripheral Venous Blood Culture - Preliminary NO GROWTH OBTAINED AFTER 96 HOURS, INCUBATION TO CONTINUE FOR 1 DAYS. 06/23/19 11:45 Blood - Peripheral Venous Blood Culture - Preliminary NO GROWTH OBTAINED AFTER 96 HOURS, INCUBATION TO CONTINUE FOR 1 DAYS. 06/24/19 16:23 Sputum - Expectorated Gram Stain - Final 06/24/19 16:23 Sputum - Expectorated Sputum Culture - Final NORMAL RESPIRATORY VANESSA 06/23/19 14:48 Urine For Antigen Detection Legionella Antigen - Final 06/23/19 14:48 Urine For Antigen Detection Streptococcus pneumoniae Antigen (M - Final ASSESSMENT AND PLAN: Patient is a 53 y/o man with h/o Untreated HTN, and HL,and active nicotine dependence with no medical f/u who presented with 1 week h/o cough and 1 day h/ o N/V. # Sepsis, due to b/l CAP .improving with leukocytosis improving on IV antibiotics, rocephin/zithromax. repeat CT of chest ; worsening infiltrates, # Elevated Troponin:most likely demand ischemia in setting of sepsis. follow with cardio for stress test and echo # GERRY : resolved. dc IVF # H/o Untreated HTN. change labetalol to norvasc in setting of broncospasm and possible undiagnosed COPD. # DVT PX: SQ heparin ( patient refusing ) patient signed AMA , given Rx for steriods tapered dose and antibiotic ceftin 500mg po bid x 7 days. follow up with pulmonary for further care, Patient was explained the risk of signing AMA , explianed worsening of Pneumonia, asthma, risk of worsening HTN, coma and .
[2019-06-27 09:33] LABS: ANISOCYTOSIS 0; MACROCYTOSIS 0; PLATELET ESTIMATE NORMAL
[2019-06-27] MEDS ORDERED: CEFTRIAXONE 1 GM in DEXTROSE 5%-WATER - 50 ML IVPB SCH (10:00)
[2019-06-27] MEDS ORDERED: ASPIRIN COATED 81 MG TABLET.EC PO SCH (10:00)
[2019-06-27] MEDS ORDERED: AZITHROMYCIN IVPB 250 MG in DEXTROSE 5%-WATER - 250 ML IVPB SCH (10:00)
[2019-06-27] MEDS ORDERED: predniSONE 20 MG TABLET (UD) PO SCH (10:00)
[2019-06-27] MEDS ORDERED: PANTOPRAZOLE 20 MG TABLET (FP) PO SCH (10:00)
[2019-06-27] MEDS ORDERED: amLODIPine BESYLATE 5 MG TABLET (FP) PO SCH (10:00)
[2019-06-27 15:11] VITALS: BP 140/91; PULSE 90; TEMP 98.7
--- NOTE | 2019-06-27 15:46 | PN ---
Physical Exam: SUBJECTIVE: Patient seen and examined in the morning. No acute events overnight. Patient still has productive cough. No complaints of chest pain, shortness of breath, fever, chills, abdominal pain, nausea/vomiting/diarrhea. OBJECTIVE: Vital Signs Period Temp Pulse Resp BP Sys/Mayes Pulse Ox Last 24 Hr 97.9 F-98.9 F 89-101 20-22 131-152/90-98 95-96 GENERAL: The patient is awake, alert, and fully oriented, in no acute distress. HEAD: Normal with no signs of trauma. EYES: PERRL, extraocular movements intact, sclera anicteric, conjunctiva clear. No ptosis. ENT: Ears normal, nares patent, oropharynx clear without exudates, moist mucous membranes. NECK: Trachea midline, full range of motion, supple. LUNGS: Breath sounds equal, clear to auscultation bilaterally, no wheezes, no crackles, no accessory muscle use. HEART: Regular rate and rhythm, S1, S2 without murmur, rub or gallop. ABDOMEN: Soft, nontender, nondistended, normoactive bowel sounds, no guarding, no rebound, no hepatosplenomegaly, no masses. EXTREMITIES: 2+ pulses, warm, well-perfused, no edema. NEUROLOGICAL: Cranial nerves II through XII grossly intact. Normal speech, gait not observed. PSYCH: Normal mood, normal affect. SKIN: Warm, dry, normal turgor, no rashes or lesions noted Laboratory Results - last 24 hr CBC, BMP 06/27/19 07:10 06/27/19 07:05 Active Medications Generic Name Dose Route Start Last Admin Trade Name Freq PRN Reason Stop Dose Admin Acetaminophen 1,000 mg 06/26/19 12:39 Tylenol - PO Q6H PRN PAIN LEVEL 6-10 Albuterol Sulfate 1 amp 06/26/19 12:39 06/27/19 08:28 Ventolin 0.083% Nebulizer Soln - NEB 1 amp Q6H PRN Administration WHEEZING Amlodipine Besylate 5 mg 06/27/19 10:00 06/27/19 09:07 Norvasc - PO 5 mg DAILY IRAIS Administration Aspirin 81 mg 06/27/19 10:00 06/27/19 09:08 Ecotrin - PO 81 mg DAILY IRAIS Administration Heparin Sodium (Porcine) 5,000 unit 06/26/19 14:00 06/27/19 05:41 Heparin - SQ Not Given TID IRAIS Azithromycin 250 mg/ Dextrose 250 mls @ 250 mls/hr 06/27/19 10:00 06/27/19 10 :19 IVPB 250 mls/hr DAILY IRAIS Administration Ceftriaxone Sodium 1 gm/ 50 mls @ 100 mls/hr 06/27/19 10:00 06/27/19 09:07 Dextrose IVPB 100 mls/hr DAILY IRAIS Administration Pantoprazole Sodium 20 mg 06/27/19 10:00 06/27/19 09:08 Protonix - PO 20 mg DAILY IRAIS Administration Prednisone 40 mg 06/27/19 10:00 06/27/19 09:08 Deltasone - PO 40 mg DAILY IRAIS Administration ASSESSMENT/PLAN: 53M with HTN, HLD, who presented with cough, nausea, and shortness of breath secondary to pneumonia. PATIENT SIGNED OUT AMA 1)Sepsis secondary to pneumonia -Was tachycardic and had leukocytosis of 18.3 on admission. -Chest CT showed bilateral lobe pneumonia. -Repeat Chest CT showed slight worsening of patchy ground glass infiltrates, most pronounced within upper lobes and right lower lobe. -WBC is 13.3 today. -Continue Ceftriaxone 1 gram IV daily -Continue azithromycin 250 mg IV daily -Continue Albuterol PRN -Continue Prednisone 40 mg PO daily -Continue Acetylcysteine BID 2)New episodes of epistaxis and hemoptysis -Likely secondary to pneumonia -TB unlikely -D/C heparin -Coagulopathy studies as outpatient 3)Elevated Troponin: -Likely secondary to ischemia in setting of sepsis -Continue ASA 81 mg PO daily 4)GERRY -Creatinine is 1.2 today. Improving. -Continue NS @100 ml/hr 5)HTN -Continue labetolol 100 mg PO BID F: Continue NS @ 100 ml/hr E: Monitor Electrolytes N: Sodium restricted diet DVT Prophylaxis: Heparin 5000 unit SQ TID Dispo: Admitted to medicine floors Visit type - Emergency Visit Emergency Visit: Yes ED Registration Date: 06/23/19 Care time: The patient presented to the Emergency Department on the above date and was hospitalized for further evaluation of their emergent condition. - New Patient This patient is new to me today: No - Critical Care Critical Care patient: No ATTENDING PHYSICIAN STATEMENT I saw and evaluated the patient. I reviewed the resident's note and discussed the case with the resident. I agree with the resident's findings and plan as documented. SUBJECTIVE: OBJECTIVE: ASSESSMENT AND PLAN:
--- NOTE | 2019-06-27 16:25 | DS ---
Physical Exam: SUBJECTIVE: Patient seen and examined in the morning. No acute events overnight. Patient still complains of productive cough. No chest pain,no shortness of breath, no abdominal pain, no fever, no chills. OBJECTIVE: Vital Signs Period Temp Pulse Resp BP Sys/Mayes Pulse Ox Last 24 Hr 97.9 F-98.9 F 89-101 20-22 131-152/90-98 95-96 PHYSICAL EXAM GENERAL: The patient is awake, alert, and fully oriented, in no acute distress.. LUNGS: Slight expiratory wheeze in the right middle lobe. HEART: Regular rate and rhythm, S1, S2 without murmur, rub or gallop. ABDOMEN: Soft, nontender, nondistended, normoactive bowel sounds NEUROLOGICAL: Cranial nerves II through XII grossly intact. Normal speech PSYCH: Normal mood, normal affect. LABS Laboratory Results - last 24 hr CBC, BMP 06/27/19 07:10 06/27/19 07:05 HOSPITAL COURSE: Date of Admission:06/23/19 Date of Discharge: 06/27/19 53M with HTN, HLD, who presented with cough, nausea, and shortness of breath secondary to pneumonia. Initial CT scan showed upper lobe consolidation, and right lower lobe infiltrate. Repeat CT showed slight worsening of upper lobe consolidation and right lower lobe infiltrate. Patient was receiving Ceftriaxone 1 gram IV , Azithromycin 250 mg IV, and 40 mg Prednisone PO. Patient signed out AMA but was given oral antibiotics, steroids, and nebulizer treatments to continue his treatment outside of the hospital. Relevant Imaging: Chest CT 06/23/19: Patchy airspace opacities mainly in the upper lobes and in the right middle lobe suggestive of infiltrate. Chest CT 06/27/19: Slight worsening of patchy ground glass infiltrates, most pronounced within upper lobes and right lower lobe. Chest X-Ray 06/23/19: No acute chest pathology Chest X-Ray 06/27/19: No acute chest pathology Minutes to complete discharge: 35 Discharge Summary Problems reviewed: Yes Reason For Visit: ACUTE KIDNEY INJURY, WHEEZING ON BOTH SIDE OF CHES Condition: Improved - Instructions Diet, Activity, Other Instructions: Patient signed out AMA. Was told the dangers of worsening infection, shortness of breath, and decreased pulmonary function if signing out. Patient was given antibiotics, nebulizer, and steroid prescription to continue after leaving hospital. Referrals: [facility] [place] [Provider Group] (please make an appointment for between 9-12) Disposition: HOME - Home Medications Comprehensive Discharge Medication List: Ambulatory Orders Aspirin [ASA -] 81 mg PO DAILY 06/23/19 Albuterol Sulfate Inhaler - [Ventolin HFA Inhaler -] 1 - 2 inh PO Q4H #1 inhaler 06/27/19 Amlodipine Besylate 5 mg PO DAILY #30 tablet 06/27/19 Cefuroxime Axetil [Ceftin -] 500 mg PO Q12H #10 tablet 06/27/19 Prednisone See Taper PO DAILY #20 tablet 06/27/19 This patient is new to me today: No Emergency Visit: Yes ED Registration Date: 06/23/19 Care time: The patient presented to the Emergency Department on the above date and was hospitalized for further evaluation of their emergent condition. Critical Care patient: No - Discharge Referral Referred to [facility] Med [facility] No ATTENDING PHYSICIAN STATEMENT I saw and evaluated the patient. I reviewed the resident's note and discussed the case with the resident. I agree with the resident's findings and plan as documented. SUBJECTIVE: OBJECTIVE: ASSESSMENT AND PLAN:
[2019-06-27] MEDS ORDERED: methylPREDNISolone NA SUCC 40 MG/1 ML VIAL IVPUSH SCH (18:00)
[2019-06-27] MEDS ORDERED: ALBUTEROL SO4 2.5/IPRATROPIUM 0.5 INH SOL 3 ML VIAL.NEB. NEB SCH (20:00)
== END 2019-06-27 16:26 | disposition left against medical advice (07) | DRG 720 ==
LOC: JER 03:30 → JERBED 05:45 → J4W 08:52 → J5S 06-26 12:05
PROVIDERS: ADMIT Internal Medicine; ATTEND Internal Medicine
DX: A41.9 Sepsis, unspecified organism (principal); J18.9 Pneumonia, unspecified organism; N17.9 Acute kidney failure, unspecified; I24.8 Other forms of acute ischemic heart disease; R04.2 Hemoptysis; I10 Essential (primary) hypertension; E78.5 Hyperlipidemia, unspecified; K29.60 Other gastritis without bleeding; F17.210 Nicotine dependence, cigarettes, uncomplicated; K21.9 Gastro-esophageal reflux disease without esophagitis
CPT/HCPCS: 36415; 71045-TC-FY; 71046-TC-FY; 71250-TC; 80048; 80053; 81003; 82550; 82553; 83605; 83735; 83880; 84100; 84484; 85025; 85027; 87040; 87070; 87205; 87804; 87899; 93005; 93010; 93306-TC; 94640; 99285-25; J1644; J7030

== ENCOUNTER 2019-07-17 17:31 | Emergency (ER) | payer OTHER ==
[2019-07-17 17:58] VITALS: BP 125/74; PULSE 99; TEMP 98.4; BMI 29.8
--- NOTE | 2019-07-17 17:59 | PDOC ---
Rapid Medical Evaluation Chief Complaint: Pain, Acute Time Seen by Provider: 07/17/19 17:53 Medical Evaluation: Allergies Allergy/AdvReac Type Severity Reaction Status Date / Time No Known Allergies Allergy Verified 06/23/19 07:02 07/17/19 17:54 I have performed a brief in-person evaluation of this patient. The patient presents with a chief complaint of:left toe pain / swelling Pertinent physical exam findings: swelling with lesion to distal toe I have ordered the following: Xray great toe The patient will proceed to the ED for further evaluation. Discharge Disposition - Diagnosis Toe pain, left - Referrals - Patient Instructions - Post Discharge Activity
--- NOTE | 2019-07-17 19:11 | PDOC ---
History of Present Illness - General Chief Complaint: Pain Stated Complaint: PAIN Time Seen by Provider: 07/17/19 17:53 - History of Present Illness Initial Comments: 07/17/19 19:07 53-year-old male with a past medical history of hypertension presents for evaluation of left toe pain x1 day and right heel pain x1 month no systemic symptoms Past History - Past Medical History Allergies/Adverse Reactions: Allergies Allergy/AdvReac Type Severity Reaction Status Date / Time No Known Allergies Allergy Verified 07/17/19 17:58 Home Medications: Ambulatory Orders Aspirin [ASA -] 81 mg PO DAILY 06/23/19 Albuterol Sulfate Inhaler - [Ventolin HFA Inhaler -] 1 - 2 inh PO Q4H #1 inhaler 06/27/19 Amlodipine Besylate 5 mg PO DAILY #30 tablet 06/27/19 Cefuroxime Axetil [Ceftin -] 500 mg PO Q12H #10 tablet 06/27/19 Prednisone See Taper PO DAILY #20 tablet 06/27/19 Asthma: Yes COPD: No HTN: Yes Hypercholesterolemia: Yes - Immunization History Immunization Up to Date: Yes - Psycho Social/Smoking Cessation Hx Smoking History: Former smoker Have you smoked in the past 12 months: No Number of Cigarettes Smoked Daily: 3 If you are a former smoker, when did you quit?: 4 WEEKS AGO Information on smoking cessation initiated: No 'Breaking Loose' booklet given: 06/23/19 Hx Alcohol Use: No Drug/Substance Use Hx: No Substance Use Type: None Review of Systems - Review of Systems Musculoskeletal: Yes: See HPI *Physical Exam - Vital Signs Last Vital Signs Temp Pulse Resp BP Pulse Ox 98.4 F 99 H 16 125/74 98 07/17/19 17:53 07/17/19 17:53 07/17/19 17:53 07/17/19 17:53 07/17/19 17:53 - Physical Exam Comments: 07/17/19 19:09 Right foot skin color and temperature normal range of motion of the ankle and toes are normal. Tenderness over the medial tubercle of the calcaneus no gross sensorimotor deficits neurovascular intact Left foot skin color and temperature normal. Tenderness over the medial nail fold of the great toe no gross sensorimotor deficits neurovascular intact Medical Decision Making - Medical Decision Making 07/17/19 19:10 Plantar fasciitis right foot possible ingrown toenail forming on the left. Will recommend podiatry follow-up x-rays show a heel spur at the medial tubercle of the calcaneus on the right foot mild osteoarthritic changes of the great toe on the left foot Discharge - Discharge Information Problems reviewed: Yes Clinical Impression/Diagnosis: Toe pain, left, Plantar fasciitis of right foot, Ingrown right greater toenail Condition: Stable Disposition: HOME - Admission No - Follow up/Referral Referrals: Yuli Stack RES [Primary Care Provider] - Jake Broderick MD [Non Staff, Medical] - Daniel Suresh MD [Staff Physician] - Yuli Lynn DPM [Non Staff, Medical] - - Patient Discharge Instructions Additional Instructions: Follow-up with podiatry in 2 to 3 days for further evaluation and treatment options of your toe pain and heel pain return to the emergency room for worsening symptoms. Tylenol as directed for pain. - Post Discharge Activity
== END 2019-07-17 19:18 | disposition home or self-care (01) ==
LOC: JERFT 17:31
DX: M72.2 Plantar fascial fibromatosis (principal); L60.0 Ingrowing nail; I10 Essential (primary) hypertension; E78.00 Pure hypercholesterolemia, unspecified; Z87.891 Personal history of nicotine dependence; Z79.82 Long term (current) use of aspirin
CPT/HCPCS: 73630-TC-RT-FY; 73660-TC-LT-FY; 99281-25

== ENCOUNTER 2020-04-14 09:46 | Emergency (ER) | payer OTHER ==
[2020-04-14 09:50] VITALS: BP 158/105; PULSE 98; TEMP 97.9; BMI 29.2
[2020-04-14] MEDS ORDERED: KETOROLAC TROMETHAMINE 30 MG/1 ML VIAL IM ONE (09:56)
--- NOTE | 2020-04-14 09:59 | PDOC ---
History of Present Illness - General Chief Complaint: Injury Stated Complaint: LT FOOT INJURY Time Seen by Provider: 04/14/20 09:51 History Source: Patient Exam Limitations: No Limitations - History of Present Illness Initial Comments: 04/14/20 10:04 54-year-old male past medical history hypertension hyperlipidemia presenting to the ED with left ankle pain. Patient states he was at work stepped off a step and inverted his ankle. Patient is complaining of posterior lateral ankle pain for 30 minutes. Patient was able to ambulate after the injury and walked into the ED. Pt otherwise denies: fevers, chills, syncope, lightheadedness, dizziness, headaches, neck pain, chest pain, shortness of breath, palpitations, back pain, abdominal pain, nausea, vomiting, diarrhea, constipation. Past History - Medical History Allergies/Adverse Reactions: Allergies Allergy/AdvReac Type Severity Reaction Status Date / Time No Known Allergies Allergy Verified 04/14/20 09:48 Home Medications: Ambulatory Orders Aspirin [ASA -] 81 mg PO DAILY 06/23/19 Amlodipine Besylate 5 mg PO DAILY #30 tablet 06/27/19 Ibuprofen [Ibu] 600 mg PO TID 10 Days #30 tablet 04/14/20 Asthma: Yes COPD: No GI Disorders: Yes (GERD,) HTN: Yes Hypercholesterolemia: Yes - Immunization History Immunization Up to Date: Yes - Psycho-Social/Smoking History Smoking History: Current every day smoker Have you smoked in the past 12 months: No Number of Cigarettes Smoked Daily: 2 If you are a former smoker, when did you quit?: 4 WEEKS AGO Information on smoking cessation initiated: No 'Breaking Loose' booklet given: 06/23/19 - Substance Abuse Hx (Audit-C & DAST Scrn) How often the patient has a drink containing alcohol: Never Score: In Men: 4 or > Positive; In Women: 3 or > Positive: 0 Screen Result (Pos requires Nsg. Audit-10AR): Negative In the last yr the pt used illegal drug/Rx for NonMed reason: No Score: Yes response is considered Positive: 0 Screen Result (Positive result requires Nsg. DAST-10): Negative *Physical Exam - Vital Signs Last Vital Signs Temp Pulse Resp BP Pulse Ox 97.9 F 98 H 20 158/105 H 100 04/14/20 09:48 04/14/20 09:48 04/14/20 09:48 04/14/20 09:48 04/14/20 09:48 - Physical Exam 04/14/20 10:05 Gen: AAOx 3, no acute distress, comfortable, no signs of respiratory distress HENT: atraumatic, normocephalic with no laceration or contusion. Nasal mucosa without erythema. Oropharynx without erythema or exudates. Mucous membranes moist. EYES: PERRL, EOM intact, conjunctiva pink NECK: supple; trachea midline; no JVD, no lymphadenopathy, or thyromegaly CV: RRR no murmurs, gallops, or rubs. CHEST: CTA b/l no wheezing, rales or rhonchi ABD: +BS/ND. no TTP; soft, no rebound, no guarding EXTREMITY: no cyanosis or erythema. 2+ dorsalis pedis, posterior tibial, and radial pulse. No pedal edema; no calf swelling or tenderness SKIN: no rash, warm and dry, no diaphoresis HEME: no purpura or ecchymosis NEURO: normal speech, CN II-XII intact, sensation intact, normal gait, no cerebellar deficits MS: 5/5 strength in all extremities, FROM intact in all extremities. Left ankle: Mild swelling to the posterior lateral aspect of the ankle superior to the lateral malleolus sensation intact from negative Osman's test Procedures - Splinting Splint Location: Left: Ankle Pre-Proc Neuro Vasc Exam: normal Hand-Made Type: orthoglass Splint Type: Yes: Short Leg Post-Proc Neuro Vasc Exam: normal Marques Bandage: yes, 3" Sling: No Complications: No Post splint xray: No Medical Decision Making - Medical Decision Making 04/14/20 10:05 54-year-old male with left ankle injury Vital signs stable Will obtain x-ray give Toradol Will reassess based on results X-ray shows segmental fibula fracture. Pt placed in AO splint. All compartments supple no signs of compartment syndrome. 1 Percocet given Patient reports improvement in pain with pain medicine Patient discharged with ibuprofen crutches, training provided TTWB until sees orthoAri RAMOS instructions given Patient to follow-up with orthopedics within 5 to 7 days without fail. Pt appears well and is safe and stable for discharge with strict return precautions including signs and symptoms requring immediate return to the ED Supportive care instructions explained and given to pt. Reasons to return emergently to ER explained and given. Importance of follow up with PMD and other specialists as indicated stressed to pt. Pt verbalized understanding of instructions. Pt to follow up with PMD in 2 days. Discharge - Discharge Information Problems reviewed: Yes Clinical Impression/Diagnosis: High ankle sprain Qualifiers: Encounter type: initial encounter Laterality: left Qualified Code(s): S93.492A - Sprain of other ligament of left ankle, initial encounter Condition: Stable Disposition: HOME - Additional Discharge Information Prescriptions: Ibuprofen [Ibu] 600 mg PO TID 10 Days #30 tablet - Follow up/Referral Referrals: Josesito Wilkes MD [Staff Physician] - Júnior Fall MD [Staff Physician] - Reinaldo Ling DO [Staff Physician] - - Patient Discharge Instructions Patient Printed Discharge Instructions: DI for Ankle Sprain - Post Discharge Activity Work/Back to School Note: Back to Work
[2020-04-14] MEDS ORDERED: KETOROLAC TROMETHAMINE 30 MG/1 ML VIAL ONE (10:04)
== END 2020-04-14 11:50 | disposition home or self-care (01) ==
LOC: JERFT 09:46
PROC: 2W3RXYZ Immobilization of Left Lower Leg using Other Device (ICD-10-PCS; principal; 2020-04-14)
PROC: 3E0234Z Introduction of Serum, Toxoid and Vaccine into Muscle, Percutaneous Approach (ICD-10-PCS; 2020-04-14)
DX: S93.492A Sprain of other ligament of left ankle, initial encounter (principal)
CPT/HCPCS: 73590-TC-LT-FY; 73610-TC-LT-FY; 73630-TC-LT; 99284-25

== ENCOUNTER 2021-03-21 14:57 | Emergency (ER) | payer OTHER ==
[2021-03-21 15:08] VITALS: BP 137/99; PULSE 97; TEMP 100.2; BMI 27.4
[2021-03-21] MEDS ORDERED: KETOROLAC TROMETHAMINE 30 MG/1 ML VIAL IM ONE (15:56)
[2021-03-21] MEDS ORDERED: PSEUDOEPHEDRINE HCL 60 MG TABLET PO SCH (16:00)
[2021-03-21] MEDS ORDERED: KETOROLAC TROMETHAMINE 30 MG/1 ML VIAL ONE ×2 (16:01→16:03)
[2021-03-21] MEDS ORDERED: PSEUDOEPHEDRINE HCL 60 MG TABLET ONE (16:01)
[2021-03-22 20:07] LABS: SARS-CoV-2 NAA Detected (Not Detected)
== END 2021-03-21 16:20 | disposition home or self-care (01) ==
LOC: JER 14:57 → JERFT 14:57 → JER 16:20
PROC: 3E0233Z Introduction of Anti-inflammatory into Muscle, Percutaneous Approach (ICD-10-PCS; principal; 2021-03-21)
DX: B34.9 Viral infection, unspecified (principal)
CPT/HCPCS: 96372; 99284-25; C9803; U0003; U0005

== ENCOUNTER 2022-06-06 01:54 | Emergency (ER) | payer OTHER ==
[2022-06-06 02:06] VITALS: BP 113/81; PULSE 76; RESP 18; TEMP 97.8; BMI 27.4
[2022-06-06] MEDS ORDERED: KETOROLAC TROMETHAMINE 30 MG/1 ML VIAL IM ONE (02:49)
[2022-06-06] MEDS ORDERED: KETOROLAC TROMETHAMINE 30 MG/1 ML VIAL ONE (02:56)
== END 2022-06-06 04:09 | disposition home or self-care (01) ==
LOC: JER 01:54
PROC: 3E023GC Introduction of Other Therapeutic Substance into Muscle, Percutaneous Approach (ICD-10-PCS; principal; 2022-06-06)
DX: M25.531 Pain in right wrist (principal)
CPT/HCPCS: 96372; 99284-25

== ENCOUNTER 2024-12-17 14:43 | Emergency (ER) | payer OTHER ==
[2024-12-17 15:09] VITALS: BP 112/66; PULSE 100; RESP 18; TEMP 98; BMI 23.6
[2024-12-17] MEDS ORDERED: IBUPROFEN 600 MG TABLET (FP) PO ONE (15:51)
[2024-12-17] MEDS: IBUPROFEN 600 MG TABLET (FP) PO ONE (15:52)
== END 2024-12-17 16:53 | disposition home or self-care (01) ==
LOC: JERFT 14:43
DX: J10.1 Influenza due to other identified influenza virus with other respiratory manifestations (principal); R50.9 Fever, unspecified; R09.81 Nasal congestion; R51.9 Headache, unspecified; R05.9 Cough, unspecified
CPT/HCPCS: 0241U-QW; 71046-TC-FY; 99284-25